=== PATIENT | male | born 1965 | race Caucasian/White ===

== ENCOUNTER 2018-06-18 08:40 | Emergency (ER) | payer SELFPAY ==
--- NOTE | 2018-06-18 09:41 | RAD ---
CHEST TWO VIEWS: History: Fever. Comparison: None. FINDINGS: Lungs are clear. No pneumothorax or effusion. Cardiac silhouette and mediastinal contours upper limit s normal limits. IMPRESSION: No acute intrathoracic abnormality. POS: [id number]
== END 2018-06-18 09:51 | disposition home or self-care (01) ==
LOC: MADERS 08:40
DX: J06.9 Acute upper respiratory infection, unspecified (principal)
CPT/HCPCS: 71046; 87804

== ENCOUNTER 2019-06-11 07:02 | Emergency (ER) | payer OTHER, SELFPAY | END 2019-06-11 07:45 | disposition home or self-care (01) | LOC: MADERS 07:02 | DX: J06.9 Acute upper respiratory infection, unspecified (principal) ==

== ENCOUNTER → 2019-07-31 | Emergency (ER) | payer SELFPAY ==
[~2019-07-31] MED LIST: Haloperidol 5 MG TAB ONE
[2019-07-31 20:14] LABS: #Basophils 0.1 thou/uL (0.0-0.2); #Eosinphils 0.1 thou/uL (0.0-0.7); #Lymphocytes 3.4 thou/uL (1.20-3.40); #Monocytes 0.7 thou/uL (0.11-0.59); #Neutrophils 2.7 thou/uL (1.40-6.50); %Basophils 1.4 % (0.0-1.0); %Eosinophils 1.6 % (0.0-10.0); %Lymphocytes 48.3 % (21.0-51.0); %Monocytes 10.1 % (0.0-10.0); %Neutrophils 38.7 % (42.0-75.0); Mean Corpuscular HGB CONC 30.6 g/dL (32.0-36.0); Mean Corpuscular Hemoglobin 28.9 pg (27.0-31.0); Mean Corpuscular Volume 94.5 fL (78.0-98.0); Mean Platelet Volume 9.8 fL (7.4-10.4); Platelet Count 204 thou/uL (130-400); Red Blood Cell (RBC) Count 5.54 mill/uL (4.70-6.10); White Blood Cell (WBC) Count 6.9 thou/uL (4.8-10.8)
[2019-07-31 20:28] LABS: ALT (SGPT) 83 U/L (8-55); AST (SGOT) 56 U/L (5-34); Acetaminophen Less than 6.0 mcg/mL (10.0-30.0); Albumin 4.4 g/dL (3.5-5.0); Alcohol 156 mg/dL (Less than 10); Alkaline Phosphatase 78 U/L (40-110); Anion Gap 16 mmol/L (10-20); BUN (Urea Nitrogen) 16 mg/dL (8.4-25.7); Bilirubin, Total 0.2 mg/dL (0.2-1.2); Calc. Creatinine Clearance 0 mL/min (70-130); Calcium 9.6 mg/dL (7.8-10.44); Carbon Dioxide 25 mmol/L (22-29); Chloride 107 mmol/L (98-107); Estimated GFR-MDRD 70; Globulin 4.4 g/dL (2.4-3.5); Glucose 86 mg/dL (70-105); Potassium 4.4 mmol/L (3.5-5.1); Protein, Total 8.8 g/dL (6.0-8.3); Salicylate Less than 8.0 mg/dL (15.0-30.0); Sodium 144 mmol/L (136-145)
[2019-07-31 20:33] LABS: Amphetamine Not Detected (NotDetected); Barbiturates Screen Not Detected (NotDetected); Benzodiazepine Screen Not Detected (NotDetected); Cocaine Metabolite Screen Not Detected (NotDetected); Medtox Control Line Valid? VALID (VALID); Methadone Not Detected (NotDetected); Methamphetamine Not Detected (NotDetected); Opiate Screen Not Detected (NotDetected); Oxycodone Screen Not Detected (NotDetected); Phencyclidine (PCP) Not Detected (NotDetected); THC/Cannabinoid Screen Not Detected (NotDetected); Tricyclic Screen Not Detected (NotDetected)
== END ==
LOC: MADERS 19:47
DX: F10.159 Alcohol abuse with alcohol-induced psychotic disorder, unspecified (principal); F17.210 Nicotine dependence, cigarettes, uncomplicated; Y90.6 Blood alcohol level of 120-199 mg/100 ml
CPT/HCPCS: 36415; 80053; 80306; 80307; 84443; 85025; 99284